=== PATIENT | female | born 1975 | race Hispanic/Latino ===

== ENCOUNTER 2021-11-19 14:09 | Emergency (ER) | payer SELFPAY ==
[2021-11-19 14:12] VITALS: BP 129/82
--- NOTE | 2021-11-20 11:33 | Electrocardiograph Report ---
[facility] Test Date: 2021-11-19 Test Time: 14:26:43 Pat Name: CARL REID Department: Room: Gender: F Audit Specialist: BASHIR : 1975 Requested By: RASHEED STINSON Order Number: [id number] Reading MD: Girish Woods Measurements Intervals [place] Rate: 87 P: 67 [place]: 147 QRS: 74 QRSD: 88 T: 62 QT: 381 QTc: 459 Interpretive Statements Sinus rhythm Low voltage, precordial leads No previous ECG available for comparison Electronically Signed On 11-20-2021 11:33:18 EDT by Girish Woods
== END 2021-11-20 19:00 | disposition left against medical advice (07) ==
LOC: ED 14:09
DX: R42 Dizziness and giddiness (principal); Z53.21 Procedure and treatment not carried out due to patient leaving prior to being seen by health care provider
CPT/HCPCS: 93005